=== PATIENT | female | born 2000 | race African-American/Black ===

== ENCOUNTER 2019-01-16 11:00 | Emergency (ER) | payer BC ==
[~2019-01-16] VITALS: Ht 162.6 cm; Wt 68.0 kg
[2019-01-16 11:24] VITALS: Ht 162.6 cm; Wt 68.0 kg
[2019-01-16 12:35] VITALS: BP 112/72
== END 2019-01-16 12:35 | disposition home or self-care (01) ==
LOC: ED 11:00
DX: S39.012A Strain of muscle, fascia and tendon of lower back, initial encounter (principal); V43.52XA Car driver injured in collision with other type car in traffic accident, initial encounter; Y93.I9 Activity, other involving external motion; Y92.413 State road as the place of occurrence of the external cause; Y99.8 Other external cause status